=== PATIENT | female | born 1995 | race Caucasian/White ===

== ENCOUNTER 2017-01-11 06:21 | Emergency (ER) | payer OTHER ==
[~2017-01-11] VITALS: Ht 160 cm; Wt 52.9 kg
[2017-01-11 06:26] VITALS: TEMP 37.1; Ht 160 cm; Wt 52.9 kg
[2017-01-11] MEDS ORDERED: OXYC-57 PO (07:08)
[2017-01-11] MEDS ORDERED: CEFU500T16 PO (07:08)
[2017-01-11] MEDS ORDERED: HYDR-5688 PO (07:21)
--- NOTE | 2017-01-11 07:24 | EMERGENCY ROOM VISIT NOTE ---
ED Visit Note First contact with patient: 07:03 CHIEF COMPLAINT: Requests medication prescription refill HISTORY OF PRESENT ILLNESS: Patient is a 21-year-old white female who presents to the emergency department requesting assistance with a narcotic prescription. Patient underwent "nasal reduction" surgery performed by Dr. Logan on , 01/08. She was given Percocet for postoperative pain, but states that this made her nauseous and vomit. She contacted the office and was given a prescription for Vicodin. She states that she was unable to get to the pharmacy to get it filled before they closed, and the prescription could not be sent to an open facility. The pharmacy will now not open until Thursday. She complains of nasal pain that she rates a 10/10. She notes that her nasal splint fell off. It was supposed to stay on for about a week. She denies any other problems or concerns. She is following all of her other postoperative instructions. PMH: Electronic medical records are reviewed and summarized as above/below. See Problem List. SOCIAL HISTORY: Patient lives at home. College student. PHYSICAL EXAM: Vital Signs: Reviewed Nurse's notes. The patient appears well and is in no acute distress. There is no slurring of speech, pupils are round equal and react to light, and the gait is normal. The patient is alert, oriented, and coherent. She has slight swelling and ecchymosis of her nose. ED course: Patient's splint was resecured with paper tape. Patient was reviewed in the [facility] Prescription Drug Monitoring Program, and there were no red flags noted. Prescriptions for Percocet and [place] at the [facility] pharmacy were noted as patient discussed. She was given a 24 hour supply of [place], and advised to pepper picker the prescription when the pharmacy opens on Thursday. She should call her surgeon's office to have the splint resecured as well. Problem List Medical Problems: (1) Compression fracture of lumbar vertebra Status: Resolved (2) Compression fracture of thoracic vertebra Status: Resolved Surgical Problems: (1) History of nasal surgery Status: Resolved Current/Historical Medications Scheduled Cefuroxime Axetil (Ceftin), 500 MG PO TID Scheduled PRN Hydrocodone/Acetaminophen 5MG/325MG ([place] 5MG/325MG), 1-2 TABLETS PO Q4 PRN for Pain Oxycodone/Acetaminophen 5MG/325MG (Percocet 5MG/325MG), 1 TABLET PO Q4H PRN for Pain Allergies Coded Allergies: No Known Allergies (Unverified , 01/11/17) Vital Signs Date Time Temp Pulse Resp B/P Pulse Ox O2 Delivery O2 Flow Rate FiO2 01/11/17 07:34 66 16 111/71 99 01/11/17 06:26 37.1 90 18 136/89 96 Room Air Departure Information Impression Primary Impression: Encounter for medication refill Prescriptions Hydrocodone/Acetaminophen 5MG/325MG ([place] 5MG/325MG) Tab 1-2 TABLETS PO Q4 Y for Pain, #15 TAB For Initial Treatment Prov: Diana Hankins PA 01/11/17 Referrals No Doctor, Assigned (PCP) Patient Instructions My [facility] Additional Instructions Hydrocodone/Acetaminophen ([place]) 5/325 mg: Take 1-2 pills every four hours for breakthrough pain. Avoid alcohol, operating machinery or dangerous equipment, working on ladders or roofs, DRIVING, or situations where being under the influence may be dangerous. It is recommended to use an zqyh-gwv-rcthnhf stool softener such as Colace, 100mg twice daily while taking this medication to avoid constipation. Continue all other postoperative instructions according to your surgeon. Follow-up with Dr. Logan's office on Thursday to have the splint resecured.
[2017-01-11 07:34] VITALS: BP 111/71; PULSE 66; O2SAT 99
== END 2017-01-11 07:35 | disposition home or self-care (01) ==
LOC: C.EDB 06:23 → C.EDA 07:35
DX: Z76.0 Encounter for issue of repeat prescription (principal); Z98.890 Other specified postprocedural states

== ENCOUNTER 2017-08-29 06:06 | Emergency (ER) | payer OTHER ==
[~2017-08-29] VITALS: Ht 157.5 cm; Wt 50.5 kg
[~2017-08-29 06:06] MED LIST: CEFU500T16 PO; OXYC-57 PO
[2017-08-29 06:12] VITALS: TEMP 36.5; Ht 157.5 cm; Wt 50.5 kg
--- NOTE | 2017-08-29 06:33 | EMERGENCY ROOM VISIT NOTE ---
History First contact with patient: 06:15 Chief Complaint: ARM PAIN Stated Complaint: RT ARM NOT WORKING,POPPED OUT?-SOMETHINGS OFF History of Present Illness The patient is a 21 year old female who presents to the Emergency Room with complaints of right elbow pain at 8/10 that started about an hour ago. She says she woke up with pain. She does not recall any trauma to the arm. She did have alcohol last night and was with friends who report there were no falls or injuries. She does report that her right pinky is numb. Denies recent travel. Denies use of OCPs. Denies tick bite ROS otherwise negative. Review of Systems See HPI for pertinent positives & negatives. A total of 6 systems reviewed and were otherwise negative. Constitutional: No fever, No chills Respiratory: No cough, No sputum, No shortness of breath, No dyspnea on exertion Cardiovascular: No chest pain Abdomen: No pain, No nausea, No vomiting, No diarrhea Musculoskeletal: + joint pain, + swelling Genitourinary - Female: No dysuria, No urinary frequency, No urinary urgency Neurologic: + numbness/tingling Past Medical/Surgical History Medical Problems: (1) Compression fracture of lumbar vertebra (2) Compression fracture of thoracic vertebra Surgical Problems: (1) History of nasal surgery Family History HTN Social History Smoking Status: Never Smoker Alcohol Use: occasionally Drug Use: none Marital Status: single Housing Status: lives with friends, lives with roommate Occupation Status: [employer] student Current/Historical Medications No Active Prescriptions or Reported Meds Physical Exam Vital Signs Date Time Temp Pulse Resp B/P (MAP) Pulse Ox O2 Delivery O2 Flow Rate FiO2 08/29/17 07:09 85 15 115/64 99 Room Air 08/29/17 06:12 36.5 99 18 115/82 99 Room Air Physical Exam see below General Appearance: no apparent distress Eyes: PERRL, EOMI Neck: supple, no JVD Respiratory/Chest: lungs clear, normal breath sounds, no respiratory distress, no accessory muscle use Cardiovascular: regular rate, rhythm, no edema, no murmur Abdomen / GI: normal bowel sounds, non tender, soft Extremities: normal inspection, + swelling (mild right elbow swelling), + pertinent finding (ROM somewhat limited at right elbow, pain with palpation over the elbow. normal ROM at shoulder and Wrist. ) Neurologic/Psych: no motor/sensory deficits, alert Medical Decision & Procedures ED Course 6:15 am - evaluated patient in A4 6:55 am - Xray results discussed with patient. Sling provided and Discharge instructions discussed. Medical Decision This is a 21 y/o F who presents with right elbow pain x 1 hour. Etiologies considered include dislocation, fracture, effusion, septic joint, sprain/strain , lyme's etc. Xrays did not reveal any abnormalities. Patient was afebrile here. The patient was placed in a sling for possible elbow sprain and asked to follow up with [facility] this week. She was advised of signs/symptoms of worsening and when she should seek further medical care. She was in agreement with the plan. Counselling about alcohol safety provided. Impression Primary Impression: Elbow pain, right Departure Information Prescriptions No Active Prescriptions or Reported Meds Referrals No Doctor, Assigned (PCP) Patient Instructions My [facility]
--- NOTE | 2017-08-29 06:38 | EMERGENCY ROOM VISIT NOTE ---
ED Visit Note First contact with patient: 06:32 Resident Physician Supervision Note: I interviewed and examined the patient. Discussed with Dr. Vyas and agree with findings and plan as documented in the note. Documented By: Gamaliel Adame Problem List Medical Problems: (1) Compression fracture of lumbar vertebra Status: Resolved (2) Compression fracture of thoracic vertebra Status: Resolved Surgical Problems: (1) History of nasal surgery Status: Resolved Current/Historical Medications Scheduled Cefuroxime Axetil (Ceftin), 500 MG PO TID Scheduled PRN Oxycodone/Acetaminophen 5MG/325MG (Percocet 5MG/325MG), 1 TABLET PO Q4H PRN for Pain Allergies Coded Allergies: No Known Allergies (Unverified , 01/11/17) Vital Signs Date Time Temp Pulse Resp B/P (MAP) Pulse Ox O2 Delivery O2 Flow Rate FiO2 08/29/17 06:12 36.5 99 18 115/82 99 Room Air Departure Information Referrals No Doctor, Assigned (PCP) Patient Instructions My [facility]
--- NOTE | 2017-08-29 06:56 | DIAGNOSTIC IMAGING REPORT ---
R ELBOW MIN 3 VIEWS ROUTINE CLINICAL HISTORY: 21 years-old Female presenting with elbow pain, awoke with elbow pain. TECHNIQUE: Frontal, oblique, and lateral views of the right elbow were obtained. COMPARISON: None. FINDINGS: No elbow joint effusion. No acute fracture or malalignment. No radiographic soft tissue abnormality. IMPRESSION: No acute osseous injury of the right elbow. Electronically signed by: Mina Alvarado M.D. 08/29/2017 6:55 AM Dictated Date/Time: 08/29/2017 6:54 AM
[2017-08-29 07:09] VITALS: BP 115/64; PULSE 85; O2SAT 99
== END 2017-08-29 07:18 | disposition home or self-care (01) ==
LOC: C.EDB 06:07 → C.EDA 07:18
DX: M25.521 Pain in right elbow (principal); Z87.81 Personal history of (healed) traumatic fracture; Z98.890 Other specified postprocedural states; Z82.49 Family history of ischemic heart disease and other diseases of the circulatory system

== ENCOUNTER 2017-11-22 12:29 | Emergency (ER) | payer OTHER ==
[~2017-11-22] VITALS: Ht 157.5 cm; Wt 51.4 kg
[2017-11-22 13:01] VITALS: TEMP 36.9; Ht 157.5 cm; Wt 51.4 kg
--- NOTE | 2017-11-22 13:38 | DIAGNOSTIC IMAGING REPORT ---
NASAL BONES MIN 3 VIEWS CLINICAL HISTORY: 22 years-old Female presenting with nasal injury last pm, history of nasal bone fracture. TECHNIQUE: 3 views of the nasal bones were obtained. COMPARISON: None. FINDINGS: Bony nasal septum midline. Paranasal sinuses and mastoid air cells grossly clear. Bony orbits intact. The nasal bone demonstrates no evidence of a displaced fracture. Irregularity could relate to prior fracture. IMPRESSION: 1. No evidence of a displaced nasal bone fracture. Electronically signed by: Mina Alvarado M.D. 11/22/2017 1:36 PM Dictated Date/Time: 11/22/2017 1:35 PM
[2017-11-22] MEDS ORDERED: TRAMADOL HCL 50 MG TAB PO STA (13:55)
[2017-11-22] MEDS ORDERED: IBUPROFEN 600 MG TAB PO STA (13:55)
[2017-11-22] MEDS ORDERED: TRAM-10 PO (14:00)
[2017-11-22 14:14] VITALS: BP 112/76; PULSE 60; O2SAT 99
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
== END 2017-11-22 14:15 | disposition home or self-care (01) ==
LOC: C.EDB 12:48 → C.EDD 14:15
DX: S00.33XA Contusion of nose, initial encounter (principal); W51.XXXA Accidental striking against or bumped into by another person, initial encounter; Z98.890 Other specified postprocedural states

== ENCOUNTER 2017-11-23 21:26 | Emergency (ER) | payer OTHER ==
[~2017-11-23] VITALS: Ht 157.5 cm; Wt 52.8 kg
[~2017-11-23 21:26] MED LIST changes: -CEFU500T16 PO; -OXYC-57 PO; +TRAM-10 PO
[2017-11-23 21:40] VITALS: TEMP 36.8; Ht 157.5 cm; Wt 52.8 kg
[2017-11-24] MEDS ORDERED: ONDA4TAB10 SL (00:37)
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
[2017-11-24 00:42] VITALS: BP 123/76; PULSE 69; O2SAT 98
--- NOTE | 2017-11-24 06:59 | DIAGNOSTIC IMAGING REPORT ---
HEAD WITHOUT CONTRAST (CT) CT DOSE: HISTORY: Trauma. Mental status change. head injury, vomiting, blurred vision TECHNIQUE: Multiaxial CT images of the head were performed without the use of intravenous contrast. A dose lowering technique was utilized adhering to the principles of ALARA. Comparison: None. Findings: The paranasal sinuses and mastoid air cells are clear. The calvarium and skull base are intact. The ventricles and sulci are within normal limits. There is no mass, hematoma, midline shift, or acute infarct. Impression: No acute intracranial abnormality. The above report was generated using voice recognition software. It may contain grammatical, syntax or spelling errors. Electronically signed by: Jayden Llanos M.D. 11/24/2017 6:58 AM Dictated Date/Time: 11/24/2017 6:57 AM
--- NOTE | 2017-11-24 07:33 | DIAGNOSTIC IMAGING REPORT ---
FACIAL BONES-MXILLOFAC WITHOUT CLINICAL HISTORY: 22 years-old Female presenting with head injury, nasal injury. TECHNIQUE: Multidetector CT of the face was performed without the use of intravenous contrast. IV contrast: None. A dose lowering technique was used consistent with the principles of ALARA (as low as reasonably achievable). COMPARISON: Plain radiographs of the nasal bones performed the previous day. CT DOSE (mGy.cm): The estimated cumulative dose is 725.58 mGy.cm. FINDINGS: Sdc Teacher topogram: Unremarkable. Minimally displaced to nondisplaced fractures of the nasal bones primarily on the right. The bony nasal septum remains midline. Paranasal sinuses and mastoid air cells clear. No additional fracture. Soft tissues of face demonstrate minimal infiltration along the nares but are otherwise normal allowing for noncontrast technique. Limited intracranial evaluation within normal limits. Upper cervical spine normal. Orbits normal. IMPRESSION: Minimally displaced to nondisplaced fractures of the nasal bones primarily on the right. Electronically signed by: Mina Alvarado M.D. 11/24/2017 7:32 AM Dictated Date/Time: 11/24/2017 7:05 AM
== END 2017-11-24 00:41 | disposition home or self-care (01) ==
LOC: C.EDB 21:28 → C.EDC 11-24 00:41
DX: S02.2XXA Fracture of nasal bones, initial encounter for closed fracture (principal); S09.90XA Unspecified injury of head, initial encounter; W01.198A Fall on same level from slipping, tripping and stumbling with subsequent striking against other object, initial encounter

== ENCOUNTER 2018-02-02 13:39 | Emergency (ER) | payer OTHER ==
[~2018-02-02] VITALS: Ht 160 cm; Wt 54.4 kg
[~2018-02-02 13:39] MED LIST changes: +ONDA4TAB10 SL
[2018-02-02 13:41] VITALS: TEMP 36.8; Ht 160 cm; Wt 54.4 kg
[2018-02-02] MEDS ORDERED: METHYLPREDNISOLONE 125 MG VIAL IV STA (14:02)
[2018-02-02] MEDS ORDERED: SODIUM CHLORIDE 0.9% 1000ML 1,000 ML IV ONE (14:15)
[2018-02-02 14:34] LABS: BASO % 0.3 %; BASO ABS # 0.03 K/uL (0-0.2); EOS % 2.7 %; EOS ABS # 0.25 K/uL (0-0.5); HEMATOCRIT 39.6 % (37-47); HEMOGLOBIN 13.5 g/dL (12.0-16.0); IG# 0.03 K/uL (0.00-0.02); LYMPH % 9.6 %; MEAN CELL VOLUME 90.2 fL (80-100); MEAN CORPUSCULAR HEMOGLOBIN 30.8 pg (25-34); MEAN CORPUSCULAR HGB CONC 34.1 g/dl (32-36); MEAN PLATELET VOLUME 9.4 fL (7.4-10.4); MONO % 7.4 %; NEUT % 79.7 %; NEUT ABS # 7.51 K/uL (1.4-6.5); PLATELET COUNT 261 K/uL (130-400); RED CELL DISTRIBUTION WIDTH CV 13.1 % (11.5-14.5); RED CELL DISTRIBUTION WIDTH SD 43.4 fL (36.4-46.3); WHITE BLOOD COUNT 9.42 K/uL (4.8-10.8)
[2018-02-02 14:49] LABS: ALBUMIN 3.9 gm/dl (3.4-5.0); CALCIUM 8.9 mg/dl (8.5-10.1); CREATININE 0.79 mg/dl (0.60-1.20); POTASSIUM 3.6 mmol/L (3.5-5.1)
[2018-02-02 14:54] LABS: INFLUENZA B ANTIGEN Neg for Influ B (NEG)
[2018-02-02] MEDS ORDERED: AMOX875T PO (15:14)
[2018-02-02] MEDS ORDERED: AMOXICILLIN/CLAVULANATE TAB 875 MG TAB PO ONE (15:15)
[2018-02-02 15:22] VITALS: BP 98/65; PULSE 61; O2SAT 100
--- NOTE | 2018-02-02 18:37 | EMERGENCY ROOM VISIT NOTE ---
History First contact with patient: 13:47 Chief Complaint: FLU LIKE SX Stated Complaint: FLU LIKE SYMPTOMS,RASH History of Present Illness The patient is a 22 year old female who presents to the Emergency Room with complaints of flulike symptoms for the past 4 or 5 days. The patient is complaining of coughing, fever, and sore throat symptoms. She went to an urgent care clinic yesterday where a strep swab was negative. The patient states that she began with a rash last evening, and now the rash is extensive on her lower legs, abdomen, chest, and arms. She continues with her flulike symptoms and has not had significant relief with [id number] medication. She denies chance of . No recent travel history. She does not take medication on a regular basis. She rates her discomfort a 6/10. Review of Systems More than 10 systems were reviewed and otherwise negative with the exception of history of present illness. Past Medical/Surgical History Medical Problems: (1) Compression fracture of lumbar vertebra (2) Compression fracture of thoracic vertebra Surgical Problems: (1) History of nasal surgery Family History No significant family history Social History Smoking Status: Never Smoker Alcohol Use: occasionally Drug Use: none Marital Status: single Housing Status: lives with friends, lives with roommate Occupation Status: [employer] student Current/Historical Medications Scheduled Amoxicillin & Pot Clavulanate (Augmentin 875-125 mg), 1 TAB PO BID Physical Exam Vital Signs Date Time Temp Pulse Resp B/P (MAP) Pulse Ox O2 Delivery O2 Flow Rate FiO2 02/02/18 15:22 61 16 98/65 100 02/02/18 13:41 36.8 78 16 120/74 96 Room Air Physical Exam VITALS: Vitals are noted on the nurse's note and reviewed by myself. Vital signs stable. GENERAL: Well-developed, well-nourished, white female, who is in no acute distress and resting comfortably. Patient is cooperative with the examination. HEAD: Normocephalic atraumatic. EARS: External ear normal. External auditory canals clear, tympanic membranes pearly dobbins without erythema or effusion bilaterally. EYES: Pupils equal round and reactive to light and accommodation. Conjunctivae without injection, sclerae without icterus. Extraocular movements intact. NOSE: Patent, turbinates without inflammation or discharge. MOUTH: Mucous membranes moist. Tonsils are not enlarged. Pharynx with erythema noted. NECK: Supple without nuchal rigidity. No lymphadenopathy. No thyromegaly. Cervical spine is nontender. HEART: Regular rate and rhythm without murmurs gallops or rubs. LUNGS: Clear to auscultation bilaterally without wheezes, rales or rhonchi. No retractions or accessory muscle use. SKIN: The skin was with diffuse maculopapular rash Medical Decision & Procedures Laboratory Results 02/02/18 14:16 Red Blood Count 4.39, Mean Corpuscular Volume 90.2, Mean Corpuscular Hemoglobin 30.8, Mean Corpuscular Hemoglobin Concent 34.1, Mean Platelet Volume 9.4, Neutrophils (%) (Auto) 79.7, Lymphocytes (%) (Auto) 9.6, Monocytes (%) (Auto) 7.4, Eosinophils (%) (Auto) 2.7, Basophils (%) (Auto) 0.3, Neutrophils # (Auto) 7.51, Lymphocytes # (Auto) 0.90, Monocytes # (Auto) 0.70, Eosinophils # (Auto) 0.25, Basophils # (Auto) 0.03 02/02/18 14:16 Test 02/02/18 14:15 02/02/18 14:16 Influenza Type A Antigen Neg for Influ A (NEG) Influenza Type B Antigen Neg for Influ B (NEG) White Blood Count 9.42 K/uL (4.8-10.8) Red Blood Count 4.39 M/uL (4.2-5.4) Hemoglobin 13.5 g/dL (12.0-16.0) Hematocrit 39.6 % (37-47) Mean Corpuscular Volume 90.2 fL (80-100) Mean Corpuscular Hemoglobin 30.8 pg (25-34) Mean Corpuscular Hemoglobin Concent 34.1 g/dl (32-36) Platelet Count 261 K/uL (130-400) Mean Platelet Volume 9.4 fL (7.4-10.4) Neutrophils (%) (Auto) 79.7 % Lymphocytes (%) (Auto) 9.6 % Monocytes (%) (Auto) 7.4 % Eosinophils (%) (Auto) 2.7 % Basophils (%) (Auto) 0.3 % Neutrophils # (Auto) 7.51 K/uL (1.4-6.5) Lymphocytes # (Auto) 0.90 K/uL (1.2-3.4) Monocytes # (Auto) 0.70 K/uL (0.11-0.59) Eosinophils # (Auto) 0.25 K/uL (0-0.5) Basophils # (Auto) 0.03 K/uL (0-0.2) RDW Standard Deviation 43.4 fL (36.4-46.3) RDW Coefficient of Variation 13.1 % (11.5-14.5) Immature Granulocyte % (Auto) 0.3 % Immature Granulocyte # (Auto) 0.03 K/uL (0.00-0.02) Anion Gap 5.0 mmol/L (3-11) Est Creatinine Clear Calc Drug Dose 93.9 ml/min Estimated GFR () 124.9 Estimated GFR (Non- 107.8 BUN/Creatinine Ratio 7.3 (10-20) Calcium Level 8.9 mg/dl (8.5-10.1) Total Bilirubin 0.4 mg/dl (0.2-1) Aspartate Amino Transf (AST/SGOT) 20 U/L (15-37) Alanine Aminotransferase (ALT/SGPT) 23 U/L (12-78) Alkaline Phosphatase 107 U/L (45-117) Total Protein 7.0 gm/dl (6.4-8.2) Albumin 3.9 gm/dl (3.4-5.0) Globulin 3.1 gm/dl (2.5-4.0) Albumin/Globulin Ratio 1.3 (0.9-2) Monoscreen NEG (NEG) Medications Administered Medications (Trade) Dose Ordered Sig/Nida Route Start Time Stop Time Status Last Admin Dose Admin Sodium Chloride 1,000 ml @ 999 mls/hr Q1H1M ONCE IV 02/02/18 14:15 02/02/18 15:15 DC 02/02/18 14:20 999 MLS/HR Methylprednisolone Sodium Succinate (Solu-Medrol IV) 125 mg NOW STAT IV 02/02/18 14:02 02/02/18 14:05 DC 02/02/18 14:20 125 MG Amoxicillin/ Clavulanate Potassium (Augmentin Tab) 875 mg NOW ONCE PO 02/02/18 15:15 02/02/18 15:16 DC 02/02/18 15:20 875 MG ED Course Physical exam and history were performed. Nursing notes, EMR, and Medication List were personally reviewed. Patient appears to have a rash with associated sore throat and cough symptoms for the past few days. The patient had a negative strep was performed yesterday. IV access was established and labs were obtained. The patient was hydrated with normal saline. She was given IV Solu-Medrol. Patient's blood work is as above and was reviewed. She does not have a significantly elevated white blood cell count, gross anemia, bandemia, or significant electrolyte imbalance. Transaminases are not diagnostic. Flu swab was negative. Monospot was also negative. Overall the patient did feel better after hydration and steroids. Her throat discomfort improved, and her rash was less reddened, but still present. I suspect that her symptoms may be the result of strep pharyngitis despite having a negative swab yesterday. Because of this I will give her a course of Augmentin and have her use [id number] analgesics. Patient was otherwise asked to return to the ER with any new, worsening, or concerning symptoms. She is to follow with her PCP. She was pleased with plan of care. The chart was completed utilizing [employer] Speech Voice Recognition Software. Grammatical errors, random word insertions, pronoun errors, and incomplete sentences are an occasional consequence of this system due to software limitations, ambient noise, and hardware issues. Any formal questions or concerns about the content, text, or information contained within the body of this dictation should be directly addressed to the provider for clarification. . Medical Decision Differential diagnosis: Etiologies such as viral syndrome, tonsillitis, streptococcal pharyngitis, mononucleosis, peritonsillar abscess, retropharyngeal abscess, otitis, pneumonia , influenza, as well as others were entertained. Impression Primary Impression: Sore throat Additional Impression: Rash Departure Information Dispostion Home / Self-Care Condition FAIR Prescriptions Amoxicillin & Pot Clavulanate (Augmentin 875-125 mg) 1 Tab Tab 1 TAB PO BID for 7 Days, #14 TAB Prov: Andres Cade PA-C 02/02/18 Forms HOME CARE DOCUMENTATION FORM, IMPORTANT VISIT INFORMATION Patient Instructions My [facility] Additional Instructions You were seen and evaluated today on an emergency basis only. This is not a substitute for, or an effort to provide, complete comprehensive medical care. It is not possible to recognize and treat all injuries or illnesses in a single emergency department visit. For this reason it is recommended that you followup with your primary care physician next week if symptoms persist. Amoxicillin Clavulanate (Augmentin) 875mg: Take one pill twice daily for 7 days for your infection. All antibiotics can cause diarrhea. If this occurs and you feel worse or it does not resolve in 1-2 days follow up with your doctor or return to the Emergency Department as this could be signs of serious underlying problems. Any medication can cause an allergic reaction, stop the pills immediately and return to the ER for rash, hives, breathing difficulties, or swelling. You are welcome to return to the emergency department anytime with new, worsening, or concerning symptoms. Problem Qualifiers
== END 2018-02-02 15:23 | disposition home or self-care (01) ==
LOC: C.EDB 13:40
DX: J02.9 Acute pharyngitis, unspecified (principal); R21 Rash and other nonspecific skin eruption

== ENCOUNTER 2018-02-09 19:03 | Emergency (ER) | payer OTHER ==
[~2018-02-09] VITALS: Ht 160 cm; Wt 53.3 kg
[~2018-02-09 19:03] MED LIST changes: +AMOX875T PO; -ONDA4TAB10 SL; -TRAM-10 PO
[2018-02-09 19:12] VITALS: Ht 160 cm; Wt 53.3 kg
--- NOTE | 2018-02-09 20:28 | EMERGENCY ROOM VISIT NOTE ---
History First contact with patient: 20:04 Chief Complaint: OTHER COMPLAINT Stated Complaint: VAGINA TEAR History of Present Illness The patient is a 22 year old female who presents to the Emergency Room with complaints of vaginal pain and discharge. The patient was having sexual vaginal intercourse with her boyfriend over the weekend. She thinks that she may have sustained a small tear. She denies any severe pain with intercourse. The next morning, she woke up and wiped. She noticed some blood. She has tried doing warm soaks. She now reports thick drainage from the area and severe pain. She is also having difficulty urinating. She denies any fever or chills. Review of Systems 10 system review performed and negative unless noted in HPI or below Past Medical/Surgical History Medical Problems: (1) Compression fracture of lumbar vertebra (2) Compression fracture of thoracic vertebra Surgical Problems: (1) History of nasal surgery Family History No significant family history Social History Smoking Status: Never Smoker Alcohol Use: occasionally Drug Use: none Marital Status: single Housing Status: lives with friends, lives with roommate Occupation Status: [employer] student Current/Historical Medications Scheduled Amoxicillin & Pot Clavulanate (Augmentin 875-125 mg), 1 TAB PO BID Physical Exam Vital Signs Date Time Temp Pulse Resp B/P (MAP) Pulse Ox O2 Delivery O2 Flow Rate FiO2 02/09/18 21:50 106 22 121/71 100 Room Air 02/09/18 19:12 37.5 123 18 131/83 98 Room Air Physical Exam GENERAL: 22-year-old female, anxious in appearance. SKIN: The skin was without rashes, erythema, edema, or bruising. HEAD: Normocephalic atraumatic. NECK: Supple without nuchal rigidity. No lymphadenopathy. Cervical spine is nontender. No JVD. HEART: Regular rate and rhythm without murmurs gallops or rubs. LUNGS: Clear to auscultation bilaterally without wheezes, rales or rhonchi. No accessory muscle use. ABDOMEN: Positive bowel sounds x 4.Soft, nontender, without organomegaly. No guarding or rebound tenderness. : Examination of the external genitalia reveal a moderate amount of edema with the right labia minora. There is an approximately 0.5 cm, superficial laceration noted to the posterior aspect of the vaginal introitus. There is no active bleeding. MUSCULOSKELETAL: No muscle atrophy, erythema, or edema noted. Strength 5/5 throughout. NEURO: Patient was alert and oriented to person place and time. Normal sensation to touch. No focal neurological deficits. Medical Decision & Procedures ER Provider Diagnostic Interpretation: CT pelvis with IV contrast IMPRESSION: 1. No abnormal pelvic masses identified 2. No evidence of acute appendicitis. No evidence of acute diverticulitis. 3. 1 cm right inguinal lymph node likely reactive Electronically signed by: Mauro Flowers M.D. 02/09/2018 10:23 PM Dictated Date/Time: 02/09/2018 10:19 PM Laboratory Results 02/09/18 20:38 Red Blood Count 4.76, Mean Corpuscular Volume 91.0, Mean Corpuscular Hemoglobin 30.7, Mean Corpuscular Hemoglobin Concent 33.7, Mean Platelet Volume 9.6, Neutrophils (%) (Auto) 86.3, Lymphocytes (%) (Auto) 3.9, Monocytes (%) (Auto) 9.1, Eosinophils (%) (Auto) 0.0, Basophils (%) (Auto) 0.1, Neutrophils # (Auto) 21.26, Lymphocytes # (Auto) 0.96, Monocytes # (Auto) 2.25, Eosinophils # (Auto) 0.01, Basophils # (Auto) 0.02 02/09/18 20:38 Test 02/09/18 20:38 02/09/18 21:00 02/09/18 22:36 White Blood Count 24.64 K/uL (4.8-10.8) Red Blood Count 4.76 M/uL (4.2-5.4) Hemoglobin 14.6 g/dL (12.0-16.0) Hematocrit 43.3 % (37-47) Mean Corpuscular Volume 91.0 fL (80-100) Mean Corpuscular Hemoglobin 30.7 pg (25-34) Mean Corpuscular Hemoglobin Concent 33.7 g/dl (32-36) Platelet Count 297 K/uL (130-400) Mean Platelet Volume 9.6 fL (7.4-10.4) Neutrophils (%) (Auto) 86.3 % Lymphocytes (%) (Auto) 3.9 % Monocytes (%) (Auto) 9.1 % Eosinophils (%) (Auto) 0.0 % Basophils (%) (Auto) 0.1 % Neutrophils # (Auto) 21.26 K/uL (1.4-6.5) Lymphocytes # (Auto) 0.96 K/uL (1.2-3.4) Monocytes # (Auto) 2.25 K/uL (0.11-0.59) Eosinophils # (Auto) 0.01 K/uL (0-0.5) Basophils # (Auto) 0.02 K/uL (0-0.2) RDW Standard Deviation 43.6 fL (36.4-46.3) RDW Coefficient of Variation 13.0 % (11.5-14.5) Immature Granulocyte % (Auto) 0.6 % Immature Granulocyte # (Auto) 0.14 K/uL (0.00-0.02) Urine Color YELLOW Urine Appearance CLOUDY (CLEAR) Urine pH 5.5 (4.5-7.5) Urine Specific [place] 1.017 (1.000-1.030) Urine Protein TRACE (NEG) Urine Glucose (UA) NEG (NEG) Urine Ketones NEG (NEG) Urine Occult Blood 2+ (NEG) Urine Nitrite NEG (NEG) Urine Bilirubin NEG (NEG) Urine Urobilinogen NEG (NEG) Urine Leukocyte Esterase LARGE (NEG) Urine WBC (Auto) >30 /hpf (0-5) Urine RBC (Auto) 10-30 /hpf (0-4) Urine Hyaline Casts (Auto) >30 /lpf (0-5) Urine Epithelial Cells (Auto) >30 /lpf (0-5) Urine Bacteria (Auto) NEG (NEG) Anion Gap 7.0 mmol/L (3-11) Est Creatinine Clear Calc Drug Dose 66.3 ml/min Estimated GFR () 81.9 Estimated GFR (Non- 70.7 BUN/Creatinine Ratio 5.2 (10-20) Calcium Level 9.3 mg/dl (8.5-10.1) Total Bilirubin 0.3 mg/dl (0.2-1) Aspartate Amino Transf (AST/SGOT) 20 U/L (15-37) Alanine Aminotransferase (ALT/SGPT) 27 U/L (12-78) Alkaline Phosphatase 123 U/L (45-117) Total Protein 8.7 gm/dl (6.4-8.2) Albumin 4.3 gm/dl (3.4-5.0) Globulin 4.4 gm/dl (2.5-4.0) Albumin/Globulin Ratio 1.0 (0.9-2) Human Chorionic Gonadotropin, Qual NEG (NEG) Medications Administered Medications (Trade) Dose Ordered Sig/Nida Route Start Time Stop Time Status Last Admin Dose Admin Ceftriaxone Sodium (Rocephin Inj) 2 gm NOW STAT IV 02/09/18 21:23 02/09/18 21:26 DC 02/09/18 21:49 2 GM ED Course Patient was seen and examined Vital signs including blood pressure were reviewed medications list was verified with patient Labs were obtained, and a saline lock was established Lidocaine cream was applied to the area The case was discussed with Dr. Bernal from [facility] The patient was medicated with ceftriaxone 2 g IV. Upon reevaluation, the patient was still complaining of significant pain. She was given morphine 4 mg IV. She was also given potassium 40 mg once p.o. she was given Zofran 4 mg IV for nausea prevention We thoroughly reviewed her workup. She voiced understanding, was comfortable being discharged home The patient was given a home pack of Percocet I reviewed discharge instructions the patient. They voiced understanding and had no further questions. Medical Decision Differential diagnosis: Vaginal laceration, abrasion, infection, cellulitis, abscess, STD, This patient is a 22-year-old female that presents to the emergency department complaining of significant pain in the posterior aspect of her vagina since having sexual intercourse a few days ago. On exam, she does have a minor laceration. It did not require repair. Her labia minora was significantly edematous and erythematous consistent with infection. The patient has significant leukocytosis at 24,000. A CT of the pelvis was performed. No significant abnormalities are noted. The case was discussed with [facility]. She was given 2 g of Rocephin in the emergency department. Patient did not tolerate a full pelvic exam. I was able to at least get cultures. The patient will be covered with Bactrim per recommendations of [facility]. She will follow up with them in the office in the next 24-48 hours. This chart was completed in part utilizing [employer] Speech Voice Recognition software. Attempts were made to minimize the grammatical errors, random word insertions, pronoun errors and incomplete sentences. Any formal questions or concerns about the content, text or information contained within the body of this dictation should be directly addressed to the provider for clarification. Medication Reconcilliation Current Medication List: was personally reviewed by me Blood Pressure Screening Patient's blood pressure: Normal blood pressure Consults Consulting Physician: Dr. Bernal Impression Primary Impression: Vaginal pain Departure Information Dispostion Home / Self-Care Condition GOOD Prescriptions Oxycodone/Acetaminophen 5MG/325MG (PERCOCET 5MG/325MG) Tab 1 TAB PO Q4H Y for Pain, #15 TAB For Initial Treatment Prov: Aliyah Huynh PA-C 02/09/18 Sulfa/Trimethoprim (Bactrim Ds 800MG/160MG) Tab 1 TAB PO BID, #7 TAB Prov: Aliyah Huynh PA-C 02/09/18 Referrals No Doctor, Assigned (PCP) Lauren Bernal, D.O. Patient Instructions My [facility] Additional Instructions You were evaluated in the emergency department for vaginal discomfort. This is possibly due to an infection. Please take the ENTIRE course of antibiotics Please call [facility] in the morning for a follow-up appointment. A number has been provided. Ibuprofen 600 mg every 6 hours Percocet 1-2 tabs every 4 hours for severe pain. Do not drink alcohol or drive while taking this medication. This may be taken with ibuprofen, but avoid Tylenol. Please apply lidocaine cream to the area every 6 hours as needed for additional pain control Your white blood cell count was elevated today. You should have repeat blood work (CBC) within the next 3-5 days Please do not hesitate to return to the emergency department with any new, worsening or concerning symptoms; especially, fever, increasing pain, swelling or redness, lower abdominal pain School Instructions Return To School: 2 days
[2018-02-09 21:08] LABS: HEMATOCRIT 43.3 % (37-47); HEMOGLOBIN 14.6 g/dL (12.0-16.0); MEAN CORPUSCULAR HEMOGLOBIN 30.7 pg (25-34); MEAN CORPUSCULAR HGB CONC 33.7 g/dl (32-36); MEAN PLATELET VOLUME 9.6 fL (7.4-10.4); PLATELET COUNT 297 K/uL (130-400); RED CELL DISTRIBUTION WIDTH SD 43.6 fL (36.4-46.3); WHITE BLOOD COUNT 24.64 K/uL (4.8-10.8)
[2018-02-09] MEDS ORDERED: LIDOCAINE 4% CREAM 15 GM TUBE EXT STA (21:10)
[2018-02-09] MEDS ORDERED: CEFTRIAXONE SOD INJ 1 GM ADDVIAL IV STA (21:23)
[2018-02-09 21:27] LABS: ALBUMIN 4.3 gm/dl (3.4-5.0); CALCIUM 9.3 mg/dl (8.5-10.1); CREATININE 1.12 mg/dl (0.60-1.20); POTASSIUM 3.1 mmol/L (3.5-5.1)
[2018-02-09 21:29] LABS: TOTAL PROTEIN 8.7 gm/dl (6.4-8.2)
[2018-02-09 21:36] LABS: BASO % 0.1 %; BASO ABS # 0.02 K/uL (0-0.2); EOS ABS # 0.01 K/uL (0-0.5); IG# 0.14 K/uL (0.00-0.02); LYMPH % 3.9 %; LYMPH ABS # 0.96 K/uL (1.2-3.4); MONO % 9.1 %; MONO ABS # 2.25 K/uL (0.11-0.59); NEUT % 86.3 %; NEUT ABS # 21.26 K/uL (1.4-6.5)
[2018-02-09] MEDS ORDERED: OPTIRAY 320 IV PRN (21:45)
--- NOTE | 2018-02-09 22:24 | DIAGNOSTIC IMAGING REPORT ---
CT PELVIS W/IV CONT ONLY (CT) CT DOSE: 169.22 mGy.cm CLINICAL HISTORY: Lower pelvic pain TECHNIQUE: The patient was scanned in a dynamic helical fashion during intravenous administration of 94 cc Optiray 320 A dose lowering technique was utilized adhering to the principles of ALARA. COMPARISON STUDY: None. FINDINGS: There is no pathologic bowel dilatation. There is a 1 cm right inguinal lymph node, likely reactive. There are no abnormal pelvic masses. There are no fluid collections to indicate an abscess. There is no evidence of acute appendicitis. There is no evidence of acute diverticulitis. No skeletal destructive lesions are visualized. It should be noted that CT scanning is insensitive for the detection of vaginal abnormalities There is trace free pelvic fluid likely physiologic IMPRESSION: 1. No abnormal pelvic masses identified 2. No evidence of acute appendicitis. No evidence of acute diverticulitis. 3. 1 cm right inguinal lymph node likely reactive Electronically signed by: Mauro Flowers M.D. 02/09/2018 10:23 PM Dictated Date/Time: 02/09/2018 10:19 PM
[2018-02-09] MEDS ORDERED: POTASSIUM CHLORIDE 10 MEQ TABCR PO STA (22:36)
[2018-02-09] MEDS ORDERED: ONDANSETRON INJ 2 MG/ML 2 ML VIAL IV STA (22:41)
[2018-02-09] MEDS ORDERED: MoRPHine SULFATE 4 MG/ML 1 ML CARP\\VIAL IV STA (22:41)
[2018-02-09] MEDS ORDERED: PERCOCET HOME PACK PO ONE (22:45)
[2018-02-09] MEDS ORDERED: IBUP-1050 PO (22:46)
[2018-02-09] MEDS ORDERED: OXYC-57 PO (22:49)
[2018-02-09] MEDS ORDERED: SULF800T23 PO (22:49)
[2018-02-09 23:22] VITALS: BP 140/86; PULSE 115; TEMP 37.5; O2SAT 98
== END 2018-02-09 23:23 | disposition home or self-care (01) ==
LOC: C.EDB 19:04
DX: S31.41XA Laceration without foreign body of vagina and vulva, initial encounter (principal); X58.XXXA Exposure to other specified factors, initial encounter

== ENCOUNTER → 2018-02-11 | Outpatient (CLI) | payer OTHER ==
[~2018-02-11] MED LIST changes: -AMOX875T PO; +IBUP-1050 PO; +OXYC-57 PO; +SULF800T23 PO
== END | disposition home or self-care (01) ==
LOC: C.LABSPEC 15:47
PROVIDERS: ATTEND Physician Assistant
DX: N76.6 Ulceration of vulva (principal)